=== PATIENT | female | born 1985 | race Caucasian/White ===

== ENCOUNTER 2016-12-07 10:10 | Observation (INO) | payer OTHER ==
[~2016-12-07] VITALS: Ht 160 cm; Wt 71.7 kg
[2016-12-07] MEDS ORDERED: LEVO25TA9 PO (10:53)
[2016-12-07] MEDS ORDERED: METHY500 PO (10:53)
[2016-12-07] MEDS ORDERED: PREN1TAB80 PO (10:53)
[2016-12-07 10:55] VITALS: BP 136/92
[2016-12-07 10:59] LABS: HEMOGLOBIN A1C 5.8 % (4.5-6.2)
== END 2016-12-07 11:55 | disposition home or self-care (01) ==
LOC: 4S 10:10
PROVIDERS: ADMIT Obstetrics & Gynecology; ATTEND Obstetrics & Gynecology
DX: Z34.93 Encounter for supervision of normal pregnancy, unspecified, third trimester (principal); Z3A.38 38 weeks gestation of pregnancy
CPT/HCPCS: 36415; 59025; 82947; 83036; G0378

== ENCOUNTER 2016-12-14 10:01 | Observation (INO) | payer OTHER ==
[~2016-12-14] VITALS: Ht 161 cm; Wt 66.7 kg
[~2016-12-14 10:01] MED LIST: LEVO25TA9 PO; METHY500 PO; PREN1TAB80 PO
[2016-12-14 10:18] VITALS: BP 123/90
[2016-12-14 12:02] LABS: HEMOGLOBIN A1C 5.6 % (4.5-6.2)
== END 2016-12-14 13:05 | disposition home or self-care (01) ==
LOC: 4S 10:01
PROVIDERS: ADMIT Obstetrics & Gynecology; ATTEND Obstetrics & Gynecology
DX: O99.283 Endocrine, nutritional and metabolic diseases complicating pregnancy, third trimester (principal); E03.9 Hypothyroidism, unspecified; O10.913 Unspecified pre-existing hypertension complicating pregnancy, third trimester; O26.893 Other specified pregnancy related conditions, third trimester; R10.9 Unspecified abdominal pain; Z3A.39 39 weeks gestation of pregnancy
CPT/HCPCS: 36415; 59025; 82947; 83036; G0378

== ENCOUNTER 2016-12-21 08:20 | Inpatient (IN) | payer OTHER ==
[~2016-12-21] VITALS: Ht 161 cm; Wt 70.8 kg
[~2016-12-21 08:20] MED LIST changes: +CITRIC ACID/SODIUM CITRATE 30 ML SOLUTION UDCUP PO PRN; +LIDOCAINE HCL/PF 1% 30 ML VIAL INJ PRN; +METOCLOPRAMIDE HCL 5 MG/ML 2 ML VIAL IVP PRN; +OXYTOCIN 20 UNITS in RINGERS SOLUTION,LACTATED 1,000 ML IV ONE; +OXYTOCIN 30 UNITS/LACT RINGERS 500 ML IV ONE; +RINGERS SOLUTION,LACTATED 1,000 ML IV PRN; +RINGERS SOLUTION,LACTATED 1,000 ML IV SCH
[2016-12-21 09:20] LABS: BASOPHILS % (AUTO) 0.6 % (0.0-2.0); EOSINOPHILS % (AUTO) 0.2 % (1.0-6.0); HEMATOCRIT 38.8 % (36-46); HEMOGLOBIN 13.5 g/dL (12.0-16.0); LYMPHOCYTES # (AUTO) 1.2 K/uL (1.0-4.8); LYMPHOCYTES % (AUTO) 21.7 % (22.0-44.0); MEAN CORPUSCULAR HEMOGLOBIN 31.5 pg (26.0-34.0); MEAN CORPUSCULAR HGB CONC 34.7 G/dL (31.0-37.0); MEAN CORPUSCULAR VOLUME 91 fL (80-100); MONOCYTES # (AUTO) 0.3 K/uL (0.1-1.0); MONOCYTES % (AUTO) 4.9 % (2.0-9.0); NEUTROPHILS % (AUTO) 72.6 % (40.0-70.0); PLATELET COUNT (AUTO) 153 K/uL (150-450); RED BLOOD CELL COUNT(AUTO) 4.28 MIL/uL (4.00-5.20); RED CELL DISTRIBUTION WIDTH 14.1 % (11.5-14.5); WHITE BLOOD COUNT (AUTO) 5.5 K/uL (4.5-11.0)
[2016-12-21 09:32] LABS: ANION GAP 10 mmol/L (8-16); CALCIUM, TOTAL 8.7 mg/dL (8.8-10.5); CARBON DIOXIDE 23 mmol/L (22-29); CHLORIDE 102 mmol/L (98-107); CREATININE 0.77 mg/dL (0.60-1.30); GLOMERULAR FILTR. RATE CALC > 60 mL/min (>60); POTASSIUM 3.9 mmol/L (3.5-5.1); SODIUM SERUM 135 mmol/L (136-145); UREA NITROGEN, BLOOD 11 mg/dL (7-18)
[2016-12-21 09:37] LABS: ALANINE AMINOTRANSFERASE 27 U/L (12-78); ALBUMIN 2.8 g/dL (3.4-5.0); ASPARTATE AMINOTRANSFERASE 22 U/L (15-37); BILIRUBIN,TOTAL 0.3 mg/dL (0.1-1.0); TOTAL PROTEIN, SERUM 6.4 g/dL (6.4-8.2); URIC ACID 5.5 mg/dL (2.6-7.2)
[2016-12-21] MEDS ORDERED: DINOPROSTONE 10 MG VAGINAL SUPPOSITORY EC ONE (10:15)
[2016-12-21] MEDS: FentaNYL CITRATE-PF 100 MCG/2 ML VIAL IVP PRN ×2 (13:41→13:46)
[2016-12-21] MEDS ORDERED: FentaNYL/BUPIV 0.125%/NS/PF 200 ML ED ONE (15:01)
[2016-12-21] MEDS ORDERED: LIDOCAINE HCL/PF 2% 5 ML VIAL ONE (16:09)
[2016-12-21] MEDS ORDERED: FentaNYL/BUPIV 0.125%/NS/PF 200 ML ED PRN (17:25)
[2016-12-21] MEDS ORDERED: DiphenhydrAMINE HCL 50 MG/ML VIAL IVP PRN (17:30)
[2016-12-21] MEDS ORDERED: ONDANSETRON HCL 4 MG/2 ML VIAL IVP PRN (17:30)
[2016-12-21] MEDS ORDERED: OXYTOCIN 20 UNITS in RINGERS SOLUTION,LACTATED 1,000 ML IV ONE (17:45)
[2016-12-21] MEDS ORDERED: OXYGEN THERAPY IH SCH (20:00)
[2016-12-21] MEDS: IBUPROFEN 800 MG TABLET PO PRN (21:25)
[2016-12-21] MEDS: METHYLDOPA 250 MG TABLET PO SCH (21:25)
[2016-12-22] MEDS ORDERED: SENNA/DOCUSATE SODIUM 187-50 MG TABLET PO PRN (00:15)
[2016-12-22] MEDS ORDERED: GLYCERIN/WITCH HAZEL LEAF 40 PADS JAR TP PRN (00:15)
[2016-12-22] MEDS ORDERED: BENZOCAINE 20%/MENTHOL 56 GM SPRAY CANISTER TP PRN (00:15)
[2016-12-22] MEDS ORDERED: LANOLIN 7 GM OINTMENT TP PRN (00:15)
[2016-12-22] MEDS ORDERED: ACETAMINOPHEN/CODEINE 300-30 MG TABLET PO PRN (00:15)
[2016-12-22] MEDS ORDERED: MAGNESIUM HYDROXIDE SUSPENSION 30 ML UDCUP PO PRN (00:15)
[2016-12-22] MEDS: IBUPROFEN 800 MG TABLET PO PRN (03:38)
[2016-12-22] MEDS: METHYLDOPA 250 MG TABLET PO SCH (09:10)
[2016-12-22] MEDS ORDERED: IBUP-2070 PO (09:51)
[2016-12-22] MEDS ORDERED: DSS100 PO (09:52)
== END 2016-12-22 15:35 | disposition home or self-care (01) | DRG 775 ==
LOC: OBSVTOIN 08:20 → 4S 08:20
PROVIDERS: ADMIT Obstetrics & Gynecology; ATTEND Obstetrics & Gynecology
PROC: 10E0XZZ Delivery of Products of Conception, External Approach (ICD-10-PCS; principal; 2016-12-21)
PROC: 0KQM0ZZ Repair Perineum Muscle, Open Approach (ICD-10-PCS; 2016-12-21)
PROC: 3E0S3CZ (ICD-10-PCS; 2016-12-21)
PROC: 00HU33Z Insertion of Infusion Device into Spinal Canal, Percutaneous Approach (ICD-10-PCS; 2016-12-21)
DX: O69.81X0 Labor and delivery complicated by cord around neck, without compression, not applicable or unspecified (principal); O77.0 Labor and delivery complicated by meconium in amniotic fluid; O70.1 Second degree perineal laceration during delivery; Z3A.40 40 weeks gestation of pregnancy; Z37.0 Single live birth
CPT/HCPCS: 84550; 86850; 86900; 86901; J2590; J3010; J3490; J7120